=== PATIENT | male | born 1960 | race Two or more races ===

== ENCOUNTER 2024-10-11 11:27 | Emergency (ER) | payer MEDICAID, SELFPAY ==
[2024-10-11 11:54] VITALS: BP 156/76; PULSE 94; RESP 18; TEMP 36.6; O2SAT 97; BMI 23.9
--- NOTE | 2024-10-11 11:56 | XR_ITS ---
Examination: Foot, right, 3 views Technique: AP, oblique, lateral views foot, 3 views Date and time of exam: October 11, 2024 1050 hrs. Indications: Injury to the foot today, foot pain. Findings: Acute fracture fourth metatarsal shaft with 3 mm offset Nondisplaced fracture distal third metatarsal No dislocation No foreign body Impression: Acute fractures third and fourth metatarsals
--- NOTE | 2024-10-11 11:57 | PD.EDANKLE ---
Lower Extremity Injury RME/HPI General Chief Complaint: Ankle/Foot Injury Stated Complaint: Right foot swelling s/p injury x 2 days ago Time Seen by Provider: 10/11/24 11:35 Arrival date/time: 10/11/24 11:27 RME / HPI RME / HPI Narrative: 64-year-old male patient with no significant medical history, came in for evaluation regarding foot pain. Patient was cutting tree and a big piece of tree landed on his right foot dorsal aspect resulting into abrasion, swelling, pain. Pain is described as dull ache severity moderate. Patient incident happened 2 days ago. Patient is ambulatory but limping. Patient denies any other complaints no medications taken prior to arrival. Tetanus vaccination is unknown. Related Data Previous Rx's ?Medication ?Instructions ?Recorded pantoprazole 40 mg tablet,delayed 40 mg PO BID 30 days #60 tabs 07/08/22 release pantoprazole 40 mg tablet,delayed 40 mg PO BID 30 days #60 tabs 07/08/22 release ibuprofen 800 mg tablet 800 mg PO TID PRN pain #30 tabs 10/11/24 Allergies Allergy/AdvReac Type Severity Reaction Status Date / Time No Known Allergies Allergy Verified 10/11/24 11:30 Review of Systems Review of Systems Narrative Review of Systems: Review of system reviewed and within normal limits except mentioned in HPI ED Exam Narrative Physical exam: VITAL SIGNS: Reviewed. GENERAL APPEARANCE: Alert and interactive, follows commands, no acute distress, HEAD AND FACE: Non-traumatic. ENT: PERRL, pink conjunctivitis, eyelid no trauma, Mucous membrane moist. NECK: Supple, nontender, no nuchal rigidity. CHEST: No tenderness, no crepitus, no paradoxical movement, no retractions. LUNGS: Clear, well ventilated, symmetric, no rales, no wheezing, no ronchi, no stridor, good breath sounds bilaterally. HEART: Regular rate, regular rhythm, no murmur, no gallops. ABDOMEN: Soft, positive bowel sounds, nondistended, no guarding, nontender, no rebound, no masses, RECTAL: Deferred. GENITAL: Deferred. NEUROLOGICAL: Gross motor function intact sensory function intact, Appropriate for age. MUSCULOSKELETAL: low back nontender, full range of motion. EXTREMITIES: Bruising, swelling, abrasion, dorsal aspect of the right foot full range of motion of the ankle and toes, full range of motion. SKIN: Color pink, dry, no rash, no lacerations, no abrasions, no contusions. LYMPHATICS: Deferred. Course Quality Measures none Orders Category Date Time Status Splint / Immobilizer STAT Care 10/11/24 15:37 Active XR foot comp RT min 3V Stat Exams 10/11/24 11:56 Taken Ibuprofen Tab [Motrin Tab] Med 10/11/24 11:56 Discontinued 800 mg PO X1 ONE TET,DIP/PERT AC (Adult)-Tdap [Boostrix Adult (Tdap) Med 10/11/24 11:56 Discontinued Vacc] 0.5 ml IMI .ONCE ONE Vital Signs Vital signs: Vital Signs Temperature 97.8 F 10/11/24 11:54 Pulse Rate 94 10/11/24 11:54 Respiratory Rate 18 10/11/24 11:54 Blood Pressure 156/76 H 10/11/24 11:54 Pulse Oximetry (%) 97 10/11/24 11:54 Oxygen Delivery Method Room Air 10/11/24 11:54 Extremity Injury, Lower MDM Narrative MDM Narrative:: 64-year-old male patient with no significant medical history, came in for evaluation regarding foot pain. Patient was cutting tree and a big piece of tree landed on his right foot dorsal aspect resulting into abrasion, swelling, pain. Pain is described as dull ache severity moderate. Patient incident happened 2 days ago. Patient is ambulatory but limping. Patient denies any other complaints no medications taken prior to arrival. Tetanus vaccination is unknown. X-ray of the right foot showed minimally displaced fourth metatarsal fracture midshaft. Results discussed with the patient and family. Patient was placed on a Ortho shoe, distal neurovascular status intact post application of Ortho shoe. Patient was advised to follow-up with PCP and for referral to orthopedic surgeon/certified nutritionist next week. Patient data External records reviewed:: None Clinical information provided by:: patient Social determinants that could affect healthcare access:: none Patient has the following chronic illnesses:: None How is presenting disease/condition affected by chronic disease/condition?: no chronic disease Evaluation data The following diagnostics were reviewed and interpreted by me:: radiology exam(s) Lab and/or radiology exams considered but not ordered:: None Interpretation Summary: See results MDM Medications / Prescriptions Medications or Prescriptions considered but not ordered:: None Medication administrations:: Medication Administration History Discontinued Medications Diphtheria/Tetanus/Acell Pertussis (Diphth,Pertuss(Acell),Tet Vac 0.5 Ml Syr- Adult) 0.5 ml IMi .ONCE ONE Stop: 10/11/24 11:57 Last Admin: 10/11/24 12:39 Dose: 0.5 ml Documented By: NA Ibuprofen (Ibuprofen Tab 400 Mg Tablet) 800 mg PO X1 ONE Stop: 10/11/24 11:57 Last Admin: 10/11/24 12:36 Dose: 800 mg Documented By: Josue Olivia Consultations Consultation(s) initiated? (list below): No Diagnosis Extremity Injury, Lower Differential Diagnosis: fracture of toe and other (Metacarpal fracture, foot dislocation) Most likely diagnosis given after review of the tests above:: Metacarpal fracture Admission Indicated Admission indicated?: not indicated Admission Request Was there a request for admission?: No Disposition Plan Disposition Plan: Discharge Discharge Attestation Discharge Attestation: The patient and all family members were given an opportunity to ask questions and understood the discharge instructions. Discharge instructions specifically effects, indications for sooner follow up or return to the emergency department, and the expected course of current diagnosis. Patient condition: Stable Discharge Plan Plan Patient Disposition: HOME (Self Care) Disposition Comment: Stable Prescriptions/Referrals Prescriptions/Med Rec: New ibuprofen 800 mg tablet 800 mg PO TID PRN (Reason: pain) Qty: 30 0RF No Action pantoprazole 40 mg Tablet,Delayed Release (Dr/Ec) 40 mg PO BID 30 Days Qty: 60 1RF pantoprazole 40 mg tablet,delayed release (DR/EC) 40 mg PO BID 30 Days Qty: 60 2RF Referrals: Osmar Cavanaugh MD [Primary Care Provider] - In 1 week Problem List Clinical Impression: Metatarsal fracture Patient/Caregiver Discharge Instructions Discharge Activity: activity as tolerated Education Materials: How [employer] He[employer] Additional Instructions: Thank you for the opportunity for serving you today. You are stable for discharged . You are advised to: Follow-up with your PCP in 1 to 2 days Return to ED for worsening of symptoms Increase oral fluids Take medication as prescribed As your PCP to refer you to an orthopedic surgeon/certified nutritionist Wear the Ortho shoe for the next 4 weeks Print Language: [place] Stand Alone Forms: Jo Ann Award Info., Patient Portal Info Letter
[2024-10-11] MEDS: IBUPROFEN TAB 400 MG TABLET 800 MG PO (12:36)
[2024-10-11] MEDS: DIPHTH,PERTUSS(ACELL),TET VAC 0.5 ML SYR- ADULT IMi (12:39)
== END 2024-10-11 15:45 | disposition home or self-care (01) ==
PROVIDERS: Emergency Provider Emergency Medicine; PCP Family Medicine
DX: S92.331A Displaced fracture of third metatarsal bone, right foot, initial encounter for closed fracture (principal); S92.341A Displaced fracture of fourth metatarsal bone, right foot, initial encounter for closed fracture; W20.8XXA Other cause of strike by thrown, projected or falling object, initial encounter; Y93.H2 Activity, gardening and landscaping; Z23 Encounter for immunization
CPT/HCPCS: 73630; 90471; 90715; 99283; A9270